=== PATIENT | female | born 1960 | race Caucasian/White ===

== ENCOUNTER → 2016-02-24 | Outpatient (CLI) | payer OTHER ==
[2016-02-24 16:52] LABS: MEAN CORPUSCULAR HEMOGLOBIN 32.5 pg (27.0-33.0); MEAN CORPUSCULAR VOLUME 95.6 fl (80.0-96.0); RED CELL DISTRIBUTION WIDTH 11.9 % (11.5-14.5); WHITE BLOOD COUNT 9.6 K/mm3 (4.0-10.0)
[2016-02-24 17:08] LABS: ALBUMIN 3.8 GM/DL (3.2-5.2); ALBUMIN/GLOBULIN RATIO 1.31 (1.00-1.93); ALKALINE PHOSPHATASE 92 U/L (45-117); ALT/SGPT 45 U/L (12-78); ANION GAP 9 MEQ/L (8-16); AST/SGOT 22 U/L (15-37); BILIRUBIN,TOTAL 0.2 MG/DL (0.2-1.0); BLOOD UREA NITROGEN 25 MG/DL (7-18); CALCIUM LEVEL 8.8 MG/DL (8.5-10.1); CARBON DIOXIDE LEVEL 26 MEQ/L (21-32); CHLORIDE LEVEL 108 MEQ/L (98-107); CREATININE FOR GFR 0.87 MG/DL (0.55-1.02); FERRITIN 284 NG/ML (8-252); GLOMERULAR FILTRATION RATE > 60.0 (>51); GLUCOSE, FASTING 131 MG/DL (70-105); PERCENT SATURATION 21.4 % (13.2-37.4); POTASSIUM SERUM 4.1 MEQ/L (3.5-5.1); SODIUM LEVEL 143 MEQ/L (136-145); TOTAL IRON BINDING CAPACITY 359 UG/DL (250-450); TOTAL PROTEIN 6.7 GM/DL (6.4-8.2)
== END ==
LOC: M LAB 15:14
PROVIDERS: ATTEND Nurse Practitioner Family
DX: Z98.84 Bariatric surgery status (principal)

== ENCOUNTER → 2016-08-18 | Outpatient (REF) | payer OTHER ==
[2016-08-18 14:32] LABS: ANION GAP 7 MEQ/L (8-16); BLOOD UREA NITROGEN 17 MG/DL (7-18); CALCIUM LEVEL 9.5 MG/DL (8.5-10.1); CARBON DIOXIDE LEVEL 29 MEQ/L (21-32); CHLORIDE LEVEL 104 MEQ/L (98-107); CHOLESTEROL LEVEL 197 MG/DL (<200); CREATININE FOR GFR 0.74 MG/DL (0.55-1.02); GLOMERULAR FILTRATION RATE > 60.0 (>51); GLUCOSE, FASTING 82 MG/DL (70-105); POTASSIUM SERUM 4.1 MEQ/L (3.5-5.1); SODIUM LEVEL 140 MEQ/L (136-145); TRIGLYCERIDES LEVEL 129 MG/DL (<150)
== END ==
LOC: M LAB REF 12:52
PROVIDERS: ATTEND Nurse Practitioner Family
DX: Z13.220 Encounter for screening for lipoid disorders (principal)

== ENCOUNTER → 2016-09-21 | Outpatient (REF) | payer OTHER, MEDICAID ==
[2016-09-21 14:10] LABS: MEAN CORPUSCULAR HEMOGLOBIN 31.6 pg (27.0-33.0); MEAN CORPUSCULAR HGB CONC 33.1 g/dl (32.0-36.5); MEAN CORPUSCULAR VOLUME 95.5 fl (80.0-96.0); RED CELL DISTRIBUTION WIDTH 12.9 % (11.5-14.5); WHITE BLOOD COUNT 5.5 K/mm3 (4.0-10.0)
== END ==
LOC: M LAB REF 13:22
PROVIDERS: ATTEND Nurse Practitioner Family
DX: D64.9 Anemia, unspecified (principal)

== ENCOUNTER → 2016-12-02 | Outpatient (REF) | payer OTHER, MEDICAID ==
[2016-12-02 14:15] LABS: ALBUMIN 3.9 GM/DL (3.2-5.2); ALBUMIN/GLOBULIN RATIO 1.22 (1.00-1.93); ALKALINE PHOSPHATASE 89 U/L (45-117); ALT/SGPT 44 U/L (12-78); ANION GAP 8 MEQ/L (8-16); AST/SGOT 28 U/L (15-37); BASO % 0.7 % (0.0-1.0); BILIRUBIN,TOTAL 0.4 MG/DL (0.2-1.0); BLOOD UREA NITROGEN 18 MG/DL (7-18); CALCIUM LEVEL 9.2 MG/DL (8.5-10.1); CARBON DIOXIDE LEVEL 28 MEQ/L (21-32); CHLORIDE LEVEL 103 MEQ/L (98-107); CREATININE FOR GFR 0.73 MG/DL (0.55-1.02); EOS # 0.1 10^3/uL (0.0-0.50); EOS % 1.8 % (0.0-3.0); GLOMERULAR FILTRATION RATE > 60.0 (>51); GLUCOSE, FASTING 98 MG/DL (70-105); LYMPH # 1.6 10^3/uL (1.5-4.5); LYMPH % 29.3 % (24.0-44.0); MEAN CORPUSCULAR HEMOGLOBIN 30.3 pg (27.0-33.0); MEAN CORPUSCULAR HGB CONC 33.6 g/dl (32.0-36.5); MEAN CORPUSCULAR VOLUME 90.3 fl (80.0-96.0); MONO # 0.5 10^3/uL (0.0-0.8); MONO % 9.1 % (0.0-5.0); NEUTROPHILS # 3.3 10^3/uL (1.8-7.7); NEUTROPHILS % 59.1 % (36.0-66.0); PLATELET COUNT, AUTOMATED 216 10^3/uL (150-450); POTASSIUM SERUM 3.9 MEQ/L (3.5-5.1); RED CELL DISTRIBUTION WIDTH 12.5 % (11.5-14.5); SODIUM LEVEL 139 MEQ/L (136-145); TOTAL PROTEIN 7.1 GM/DL (6.4-8.2); WHITE BLOOD COUNT 5.5 10^3/uL (4.0-10.0)
[2016-12-02 14:40] LABS: FOLATE > 24.0 NG/ML; VITAMIN B12 LEVEL 620 PG/ML
== END ==
LOC: M LAB REF 12:52
PROVIDERS: ATTEND Nurse Practitioner Adult Health
DX: D64.9 Anemia, unspecified (principal); E11.9 Type 2 diabetes mellitus without complications

== ENCOUNTER → 2017-03-27 | Outpatient (REF) | payer OTHER ==
[2017-03-27 22:21] LABS: APPEARANCE, URINE HAZY (CLEAR); BACTERIA, URINE AUTO 3+ (NEGATIVE); BILIRUBIN, URINE AUTO NEGATIVE (NEGATIVE); BLOOD, URINE BLOOD 1+ (NEGATIVE); COLOR, URINE STRAW (YELLOW); GLUCOSE, URINE (UA) AUTO NEGATIVE (NEGATIVE); KETONE, URINE AUTO NEGATIVE (NEGATIVE); LEUKOCYTE ESTERASE, URINE AUTO 1+ (NEGATIVE); MUCUS, URINE SMALL (NEGATIVE); NITRITE, URINE AUTO POSITIVE (NEGATIVE); PROTEIN, URINE AUTO NEGATIVE (NEGATIVE); RBC, URINE AUTO 5 /HPF (0-3); SPECIFIC GRAVITY URINE AUTO 1.006 (1.002-1.035); SQUAMOUS EPITHELIAL CELL UR AU 0 /HPF (0-6); UROBILINOGEN, URINE AUTO 0.2 mg/dL (0.0-2.0); WBC, URINE AUTO 20 /HPF (0-3)
== END ==
LOC: M LAB REF 09:38
DX: N39.0 Urinary tract infection, site not specified (principal)

== ENCOUNTER → 2017-05-27 | Outpatient (REF) | payer OTHER, MEDICAID ==
[2017-05-27 18:14] LABS: BASO % 0.4 % (0.0-1.0); EOS # 0.1 10^3/uL (0.0-0.50); EOS % 2.9 % (0.0-3.0); HEMATOCRIT 42.6 % (36.0-47.0); HEMOGLOBIN 13.9 g/dl (12.0-15.5); IMMATURE GRANULOCYTE % 0.2 % (0-3.0); LYMPH # 1.3 10^3/uL (1.5-4.5); LYMPH % 26.6 % (24.0-44.0); MEAN CORPUSCULAR HGB CONC 32.6 g/dl (32.0-36.5); MONO # 0.5 10^3/uL (0.0-0.8); MONO % 9.2 % (0.0-5.0); NEUTROPHILS % 60.7 % (36.0-66.0); PLATELET COUNT, AUTOMATED 197 10^3/uL (150-450); RED BLOOD COUNT 4.63 10^6/uL (4.00-5.40); RED CELL DISTRIBUTION WIDTH 12.7 % (11.5-14.5); WHITE BLOOD COUNT 4.9 10^3/uL (4.0-10.0)
[2017-05-27 18:26] LABS: ALBUMIN 3.8 GM/DL (3.2-5.2); ALBUMIN/GLOBULIN RATIO 1.23 (1.00-1.93); ALKALINE PHOSPHATASE 94 U/L (45-117); ALT/SGPT 44 U/L (12-78); ANION GAP 7 MEQ/L (8-16); AST/SGOT 22 U/L (7-37); BILIRUBIN,TOTAL 0.3 MG/DL (0.2-1.0); BLOOD UREA NITROGEN 21 MG/DL (7-18); CALCIUM LEVEL 8.9 MG/DL (8.5-10.1); CARBON DIOXIDE LEVEL 27 MEQ/L (21-32); CHLORIDE LEVEL 108 MEQ/L (98-107); CREATININE FOR GFR 0.75 MG/DL (0.55-1.30); GLOMERULAR FILTRATION RATE > 60.0 (>51); GLUCOSE, FASTING 103 MG/DL (70-100); POTASSIUM SERUM 4.1 MEQ/L (3.5-5.1); SODIUM LEVEL 142 MEQ/L (136-145); TOTAL PROTEIN 6.9 GM/DL (6.4-8.2)
[2017-05-27 18:47] LABS: ESTIMATED AVERAGE GLUCOSE 123 MG/DL (60-110); HEMOGLOBIN A1c 5.9 %
== END ==
LOC: M LAB REF 17:47
DX: E11.9 Type 2 diabetes mellitus without complications (principal)
CPT/HCPCS: 80053

== ENCOUNTER 2017-06-08 15:44 | Emergency (ER) | payer OTHER, MEDICAID ==
[2017-06-08 19:33] LABS: HEMATOCRIT 43.3 % (36.0-47.0); HEMOGLOBIN 14.4 g/dl (12.0-15.5); MEAN CORPUSCULAR HEMOGLOBIN 30.4 pg (27.0-33.0); MEAN CORPUSCULAR HGB CONC 33.3 g/dl (32.0-36.5); MEAN CORPUSCULAR VOLUME 91.5 fl (80.0-96.0); PLATELET COUNT, AUTOMATED 190 10^3/uL (150-450); RED BLOOD COUNT 4.73 10^6/uL (4.00-5.40); RED CELL DISTRIBUTION WIDTH 12.2 % (11.5-14.5); WHITE BLOOD COUNT 6.7 10^3/uL (4.0-10.0)
[2017-06-08 19:52] LABS: ANION GAP 3 MEQ/L (8-16); BLOOD UREA NITROGEN 18 MG/DL (7-18); CALCIUM LEVEL 8.9 MG/DL (8.5-10.1); CARBON DIOXIDE LEVEL 30 MEQ/L (21-32); CHLORIDE LEVEL 108 MEQ/L (98-107); CREATININE FOR GFR 0.66 MG/DL (0.55-1.30); GLOMERULAR FILTRATION RATE > 60.0 (>51); GLUCOSE, FASTING 94 MG/DL (70-100); MAGNESIUM LEVEL 2.2 MG/DL (1.8-2.4); POTASSIUM SERUM 3.9 MEQ/L (3.5-5.1); SODIUM LEVEL 141 MEQ/L (136-145)
[2017-06-08 20:37] LABS: ALBUMIN 4.1 GM/DL (3.2-5.2); ALBUMIN/GLOBULIN RATIO 1.28 (1.00-1.93); ALKALINE PHOSPHATASE 90 U/L (45-117); ALT/SGPT 43 U/L (12-78); AST/SGOT 28 U/L (7-37); BILIRUBIN,DIRECT < 0.1 MG/DL (0.0-0.2); BILIRUBIN,TOTAL 0.2 MG/DL (0.2-1.0); TOTAL PROTEIN 7.3 GM/DL (6.4-8.2)
== END 2017-06-08 21:07 | disposition home or self-care (01) ==
LOC: M ED 15:44
DX: R22.41 Localized swelling, mass and lump, right lower limb (principal); J44.9 Chronic obstructive pulmonary disease, unspecified; Z98.0 Intestinal bypass and anastomosis status; Z98.890 Other specified postprocedural states; Z88.1 Allergy status to other antibiotic agents; Z88.8 Allergy status to other drugs, medicaments and biological substances
CPT/HCPCS: 93971

== ENCOUNTER → 2018-02-16 | Outpatient (CLI) | payer OTHER ==
[~2018-02-16] MED LIST: FERR325T3 PO; KETO10TAB PO; LASI40TA9 PO; MULT1CHW39 PO; PRED20TA PO; PROAAER10 INH; ROBA750T4 PO; VITA100067 PO
--- NOTE | 2018-02-17 04:51 | REP ---
Clinical: Abnormal gallbladder . Comparison: 02/19/2010 Technique: Duong scale ultrasound using curved array transducer. Findings: The liver and pancreas are normal in contour, size, and echogenicity without focal hepatic or pancreatic lesions identified. The gallbladder is normal without gallstones, wall thickening or pericholecystic fluid. The previously identified gallbladder polyp is not visualized on current examination. No biliary ductal dilatation is appreciated, and the common bile duct measures 4.7 mm diameter. The right kidney is normal in reniform shape without hydronephrosis and measures 10.7 x 4.8 x 4.0 cm. No ascites. Visualized portions of the abdominal aorta normal. Impression: Normal right upper quadrant and gallbladder abdominal ultrasound. Electronically Signed by Asad Miguel MD 02/17/2018 04:43 A
== END ==
LOC: M RAD 07:41
PROVIDERS: ATTEND Nurse Practitioner Adult Health
DX: K82.8 Other specified diseases of gallbladder (principal)

== ENCOUNTER 2018-05-26 14:38 | Emergency (ER) | payer OTHER ==
[~2018-05-26] VITALS: Ht 152.4 cm; Wt 90.9 kg
[~2018-05-26 14:38] MED LIST changes: -MULT1CHW39 PO; +MULT200T7 PO
[2018-05-26] MEDS ORDERED: FOLI400T (14:50)
[2018-05-26] MEDS ORDERED: EMLA CREAM 5GM (LIDOCAINE/PRILOCAINE) TOP ONE (15:00)
[2018-05-26] MEDS ORDERED: MORPHINE 4 MG/ML 1ML VIAL/SYRINGE (J2270) IV ONE (15:00)
[2018-05-26] MEDS ORDERED: NS 1,000 ML IV SCH (15:00)
[2018-05-26] MEDS ORDERED: ONDANSETRON 4MG/2ML VIAL (J2405) IV ONE (15:00)
[2018-05-26 15:40] LABS: BASO % 0.5 % (0.0-1.0); EOS # 0.1 10^3/uL (0.0-0.50); EOS % 1.8 % (0.0-3.0); HEMATOCRIT 41.9 % (36.0-47.0); HEMOGLOBIN 14.1 g/dl (12.0-15.5); LYMPH # 1.5 10^3/uL (1.5-4.5); LYMPH % 25.8 % (24.0-44.0); MEAN CORPUSCULAR HGB CONC 33.7 g/dl (32.0-36.5); MEAN CORPUSCULAR VOLUME 92.1 fl (80.0-96.0); MONO # 0.5 10^3/uL (0.0-0.8); MONO % 8.7 % (0.0-5.0); NEUTROPHILS # 3.8 10^3/uL (1.8-7.7); PLATELET COUNT, AUTOMATED 195 10^3/uL (150-450); RED BLOOD COUNT 4.55 10^6/uL (4.00-5.40)
[2018-05-26 16:06] LABS: ALBUMIN 3.9 GM/DL (3.2-5.2); ALT/SGPT 43 U/L (12-78); BILIRUBIN,DIRECT < 0.1 MG/DL (0.0-0.2); BILIRUBIN,TOTAL 0.3 MG/DL (0.2-1.0); BLOOD UREA NITROGEN 18 MG/DL (7-18); CALCIUM LEVEL 8.7 MG/DL (8.5-10.1); CARBON DIOXIDE LEVEL 28 MEQ/L (21-32); CHLORIDE LEVEL 109 MEQ/L (98-107); CREATININE FOR GFR 0.73 MG/DL (0.55-1.30); GLOMERULAR FILTRATION RATE > 60.0 (>51); GLUCOSE, FASTING 104 MG/DL (70-100); LIPASE 177 U/L (73-393); POTASSIUM SERUM 3.6 MEQ/L (3.5-5.1); SODIUM LEVEL 143 MEQ/L (136-145); TOTAL PROTEIN 6.5 GM/DL (6.4-8.2)
--- NOTE | 2018-05-26 16:51 | REP ---
Right upper quadrant sonography: History: Right upper quadrant pain. Rule out cholecystitis. Comparison study: Comparison study is from February 16, 2018. Findings: Scanning through the right upper quadrant of the abdomen demonstrates a normal sized, thin-walled gallbladder without evidence of stone or polyp. Common bile duct is normal measuring 0.3 cm in greatest diameter. No focal liver lesion is seen. Liver size is normal. No pancreatic abnormality is observed. No right renal abnormality is seen. There is no evidence of ascites. The right kidney measures 10.0 x 4.9 x 4.5 cm. Impression: Negative right upper quadrant sonography. Electronically Signed by Florentin Felix MD 05/26/2018 04:42 P
[2018-05-26] MEDS: GASTROGRAFIN SOLUTION 30ML PO SCH ×2 (18:13→18:22)
[2018-05-26] MEDS ORDERED: ISOVUE-370 76% 100ML VIAL (Q9967) As Ordered ONE (18:37)
--- NOTE | 2018-05-26 19:34 | REP ---
CT abdomen and pelvis with IV and oral contrast: History: Right upper quadrant pain. CT contrast dose: 100 ml of intravenous Isovue 370. CT findings: Bilateral breast augmentation implants are seen at the top of the imaging field of view. Preliminary digital order takers supervisor view of the abdomen show air and stool in nondistended colon loops. The lung bases are clear on axial CT images. The patient is status post gastric bypass procedure and there is evidence of a hiatal hernia. The liver and the spleen are normal in size and homogeneous in texture. The gallbladder and the pancreas are unremarkable. No adrenal lesion is seen. The kidneys enhance symmetrically and are morphologically intact. Small and large intestinal bowel loops are normal in the abdomen and pelvis. The appendix is surgically absent. The uterus is surgically absent. Urinary bladder is unremarkable. No pelvic mass or adenopathy is seen. There is a small periumbilical ventral hernia transmitting a small quantity of abdominal fat. Impression: No acute intra-abdominal abnormality. Small periumbilical ventral hernia transmitting fat. Hiatal hernia. Status post gastric bypass, appendectomy, and hysterectomy. Electronically Signed by Florentin Felix MD 05/26/2018 07:39 P
[2018-05-26] MEDS ORDERED: ZOFR4TAB16 PO (19:49)
[2018-05-26 20:05] VITALS: BP 156/71
== END 2018-05-26 20:20 | disposition home or self-care (01) ==
LOC: M ED 14:38
DX: R10.9 Unspecified abdominal pain (principal); R11.2 Nausea with vomiting, unspecified; K43.9 Ventral hernia without obstruction or gangrene; E11.9 Type 2 diabetes mellitus without complications; J44.9 Chronic obstructive pulmonary disease, unspecified; M51.9 Unspecified thoracic, thoracolumbar and lumbosacral intervertebral disc disorder; Z79.899 Other long term (current) drug therapy; Z88.8 Allergy status to other drugs, medicaments and biological substances
CPT/HCPCS: 74177; 76705; 80048; 80076; 83690; 85025; 93041; 96374; 96375; 99285; J2270; J2405; Q9963; Q9967

== ENCOUNTER 2018-06-09 16:04 | Emergency (ER) | payer OTHER ==
[~2018-06-09] VITALS: Ht 152.4 cm; Wt 81.8 kg
[~2018-06-09 16:04] MED LIST changes: +FOLI400T; +ZOFR4TAB16 PO
[2018-06-09] MEDS ORDERED: SUCRALFATE SUSP 1GM/10ML UD PO ONE (16:45)
[2018-06-09] MEDS ORDERED: GI COCKTAIL 50ML BTL(HYOSCYAMINE/MAALOX/LIDOCAINE VISCOUS)(1:3:1) PO ONE (16:45)
[2018-06-09] MEDS ORDERED: NS 500 ML IV ONE (16:45)
[2018-06-09] MEDS ORDERED: PANTOPRAZOLE 40MG INJ (PROTONIX) (C9113) IV ONE (16:45)
[2018-06-09] MEDS ORDERED: METOCLOPRAMIDE INJ 10MG/2ML VIAL (J2765) IV ONE (16:45)
[2018-06-09] MEDS ORDERED: EMLA CREAM 5GM (LIDOCAINE/PRILOCAINE) TOP ONE (17:00)
[2018-06-09 18:40] LABS: BASO % 0.3 % (0.0-1.0); EOS # 0.2 10^3/uL (0.0-0.50); EOS % 1.4 % (0.0-3.0); HEMATOCRIT 45.9 % (36.0-47.0); HEMOGLOBIN 15.5 g/dl (12.0-15.5); LYMPH % 17.2 % (24.0-44.0); MEAN CORPUSCULAR HEMOGLOBIN 31.3 pg (27.0-33.0); MEAN CORPUSCULAR HGB CONC 33.8 g/dl (32.0-36.5); MEAN CORPUSCULAR VOLUME 92.5 fl (80.0-96.0); MONO # 0.8 10^3/uL (0.0-0.8); MONO % 6.9 % (0.0-5.0); NEUTROPHILS # 8.7 10^3/uL (1.8-7.7); NEUTROPHILS % 73.7 % (36.0-66.0); PLATELET COUNT, AUTOMATED 196 10^3/uL (150-450); RED BLOOD COUNT 4.96 10^6/uL (4.00-5.40); WHITE BLOOD COUNT 11.8 10^3/uL (4.0-10.0)
--- NOTE | 2018-06-09 18:51 | REPVR ---
EXAM: US Abdomen Limited, Right Upper Quadrant EXAM DATE/TIME: 06/09/2018 6:06 PM CLINICAL HISTORY: 57 years old, female; Abdominal pain; Acute; Additional info: Gb pain eval TECHNIQUE: Imaging protocol: Real-time ultrasound of the abdomen with image documentation. Examination was focused on the right upper quadrant. COMPARISON: GALLBLADDER US 05/26/2018 3:53 PM FINDINGS: Liver: Echogenic, consistent with fatty infiltration. Gallbladder: Mildly distended. No gallstones. No gallbladder wall thickening or pericholecystic fluid. Positive sonographic Sevilla's sign, as per the disability case manager. This is a nonspecific finding. Common bile duct: No stones. No ductal dilatation. Pancreas: Unremarkable as visualized. Right kidney: No mass. No definite stones. No hydronephrosis. IMPRESSION: No acute sonographic findings. Electronically signed by: Niko Allen On 06/09/2018 18:51:01 PM
[2018-06-09 19:09] LABS: ALBUMIN 4.1 GM/DL (3.2-5.2); ALT/SGPT 41 U/L (12-78); BILIRUBIN,DIRECT < 0.1 MG/DL (0.0-0.2); BILIRUBIN,TOTAL 0.4 MG/DL (0.2-1.0); BLOOD UREA NITROGEN 16 MG/DL (7-18); CALCIUM LEVEL 8.8 MG/DL (8.5-10.1); CARBON DIOXIDE LEVEL 30 MEQ/L (21-32); CHLORIDE LEVEL 105 MEQ/L (98-107); CREATININE FOR GFR 0.77 MG/DL (0.55-1.30); GLOMERULAR FILTRATION RATE > 60.0 (>51); GLUCOSE, FASTING 85 MG/DL (70-100); LIPASE 275 U/L (73-393); POTASSIUM SERUM 4.1 MEQ/L (3.5-5.1); SODIUM LEVEL 140 MEQ/L (136-145); TOTAL PROTEIN 7.4 GM/DL (6.4-8.2)
[2018-06-09 19:19] VITALS: BP 144/89
[2018-06-09] MEDS ORDERED: PROT1TAB2 PO (19:33)
[2018-06-09] MEDS ORDERED: CARA1TAB6 PO (19:33)
== END 2018-06-09 19:49 | disposition home or self-care (01) ==
LOC: M ED 16:04 → EDBD 16:04 → M ED 19:49
DX: K29.70 Gastritis, unspecified, without bleeding (principal); J45.909 Unspecified asthma, uncomplicated; D50.9 Iron deficiency anemia, unspecified; K44.9 Diaphragmatic hernia without obstruction or gangrene; Z98.84 Bariatric surgery status; Z79.899 Other long term (current) drug therapy; Z88.8 Allergy status to other drugs, medicaments and biological substances
CPT/HCPCS: 76705; 80048; 80076; 83690; 85025; 96361; 96374; 96375; 99284; C9113; J2765

== ENCOUNTER → 2018-06-17 | Outpatient (REF) | payer OTHER ==
[~2018-06-17] MED LIST changes: +CARA1TAB6 PO; +PROT1TAB2 PO
[2018-06-17 18:20] LABS: IRON (FE) 112 UG/DL (50-170)
[2018-06-17 18:30] LABS: TOTAL 25(OH) VITAMIN D 30.4 NG/ML (30.0-100.0)
[2018-06-17 18:31] LABS: FOLATE > 24.0 NG/ML; VITAMIN B12 LEVEL 452 PG/ML
[2018-06-17 19:08] LABS: HEMOGLOBIN A1c 5.8 %
== END ==
LOC: M LAB REF 16:39
PROVIDERS: ATTEND Nurse Practitioner Adult Health
DX: Z98.84 Bariatric surgery status (principal); E11.9 Type 2 diabetes mellitus without complications

== ENCOUNTER → 2018-07-01 | Outpatient (CLI) | payer OTHER ==
[~2018-07-01] MED LIST changes: +D 1010004 PO; +D31000CA4 PO; +GARC500T PO; +RA B1TAB2 PO
--- NOTE | 2018-07-01 10:30 | REP ---
UNILATERAL MAMMOGRAM RIGHT BREAST WITH 3D TOMOSYNTHESIS: Unilateral mammogram right breast performed with 3D tomosynthesis. Patient has had a prior left mastectomy for breast cancer. Right breast implant is grossly intact. Mild scattered fibroglandular tissue is seen in the right breast. No mass is seen. However there appear to be new tiny calcifications clustered in the medial aspect of the right breast. Recommend magnification views to further evaluate. IMPRESSION: ACR 0 incomplete. Tiny microcalcifications in the medial right breast. Recommend magnification views to further evaluate. Electronically Signed by Lance Duong MD 07/05/2018 09:56 A
== END ==
LOC: M RAD 08:59
PROVIDERS: ATTEND Internal Medicine Hematology & Oncology
DX: Z12.31 Encounter for screening mammogram for malignant neoplasm of breast (principal); Z98.82 Breast implant status; Z90.12 Acquired absence of left breast and nipple; R92.2 Inconclusive mammogram; Z85.3 Personal history of malignant neoplasm of breast

== ENCOUNTER → 2018-07-11 | Outpatient (CLI) | payer OTHER ==
--- NOTE | 2018-07-11 13:19 | REP ---
DIAGNOSTIC MAMMOGRAM RIGHT BREAST: Spot magnification views of the right breast are performed and correlated with the recent mammogram of 07/01/2018. Patient has a history of left breast cancer and mastectomy. There is a family history of breast cancer in mother at age 60 and breast cancer in maternal aunt at age 42 and in paternal aunt at age 60. Today's magnification views confirm the presence of clustered tiny microcalcifications in the inner right breast. These are not seen on prior studies. IMPRESSION: BIRADS 4: BI-RADS/ACR category 4 mammogram. Suspicious Abnormality - biopsy should be considered. Clustered tiny microcalcifications in the medial right breast. Recommend stereotactic biopsy. The patient letter being requested is M4. Electronically Signed by Lance Duong MD 07/12/2018 11:57 A
== END ==
LOC: M RAD 12:16
PROVIDERS: ATTEND Internal Medicine Hematology & Oncology
DX: R92.0 Mammographic microcalcification found on diagnostic imaging of breast (principal); Z85.3 Personal history of malignant neoplasm of breast; Z90.12 Acquired absence of left breast and nipple; Z80.3 Family history of malignant neoplasm of breast

== ENCOUNTER → 2018-07-21 | Outpatient (CLI) | payer OTHER ==
--- NOTE | 2018-07-21 11:18 | REP ---
Hepatobiliary scan and gallbladder ejection fraction: History: Right upper quadrant pain Technique: 6.2 mCi of technetium-99m mebrofenin was injected and sequential anterior images are acquired. 65 minutes after the mebrofenin injection, the patient consumed 8 ounces Ensure and an additional 60 minutes of imaging was acquired. Regions of interest are plotted around the gallbladder. Findings: The initial hepatocellular parenchymal uptake phase is normal and homogeneous. Intra- and extra-hepatic bile ducts are labeled by the five -minute image. The gallbladder is first labeled on the five -minute image. There is normal washout from the liver parenchyma into the gallbladder and small intestine on subsequent images. The gallbladder ejection fraction is 63 %. Values greater than 35 % are considered normal with this technique. Impression: Normal hepatobiliary scan and normal gallbladder ejection fraction. Electronically Signed by Florentin Felix MD 07/21/2018 11:09 A
== END ==
LOC: M RAD 07:44
PROVIDERS: ATTEND Surgery
DX: R10.11 Right upper quadrant pain (principal)
CPT/HCPCS: 78227; A9537; J2805

== ENCOUNTER → 2018-07-29 | Outpatient (CLI) | payer OTHER ==
[~2018-07-29] MED LIST changes: +LIDOCAINE 1% MDV 20ML VIAL As Ordered ONE
== END ==
LOC: M RADPRO 10:56
PROVIDERS: ATTEND Internal Medicine Hematology & Oncology
DX: R92.0 Mammographic microcalcification found on diagnostic imaging of breast (principal); Z53.8 Procedure and treatment not carried out for other reasons

== ENCOUNTER 2019-01-15 12:08 | Inpatient (IN) | payer OTHER ==
[~2019-01-15] VITALS: Ht 152.4 cm; Wt 85.0 kg
[~2019-01-15 12:08] MED LIST changes: -LIDOCAINE 1% MDV 20ML VIAL As Ordered ONE
[2019-01-15] MEDS ORDERED: ALBU83IN NEB (12:46)
--- NOTE | 2019-01-15 13:29 | REP ---
CHEST PA AND LATERAL: 01/15/2019. COMPARISON: 08/28/2014. CLINICAL HISTORY: Cough, chest heaviness. FINDINGS: The lung deleon well inflated. There is no definite effusion, infiltrate, atelectasis, or mass. Heart size upper limits of normal without specific chamber enlargement. There is some pulmonary venous hypertension without pulmonary edema. There are axillary surgical clips from lymph node dissection on the left. Airway is intact. Bony thorax shows no focal lesion. IMPRESSION: 1. Some borderline heart size with pulmonary venous hypertension. No pulmonary edema, pleural effusion, or definite infiltrate. 2. Axillary surgical clips on the left from presumed lymph node dissection. Electronically Signed by Juwan Rogel MD 01/15/2019 05:14 P
[2019-01-15] MEDS ORDERED: IPRATROPIUM 0.5MG/ALBUTEROL 2.5MG INH SOL UD 3ML (DUONEB)(J7620) NEB ONE (14:15)
[2019-01-15] MEDS ORDERED: NS 1,000 ML IV ONE (14:15)
[2019-01-15 14:46] LABS: BASO % 0.8 % (0.0-1.0); EOS # 0.2 10^3/uL (0.0-0.5); EOS % 3.8 % (0.0-3.0); HEMATOCRIT 42.6 % (36.0-47.0); LYMPH # 1.3 10^3/uL (1.5-5.0); LYMPH % 25.9 % (24.0-44.0); MEAN CORPUSCULAR HEMOGLOBIN 30.9 pg (27.0-33.0); MEAN CORPUSCULAR HGB CONC 32.9 g/dl (32.0-36.5); MONO # 0.4 10^3/uL (0.0-0.8); MONO % 8.7 % (0.0-5.0); NEUTROPHILS % 60.6 % (36.0-66.0); PLATELET COUNT, AUTOMATED 159 10^3/uL (150-450); RED BLOOD COUNT 4.53 10^6/uL (4.00-5.40)
[2019-01-15] MEDS ORDERED: hydrALAZINE INJ 20 MG/ML VIAL IV STA ×2 (15:02→16:48)
[2019-01-15 15:09] LABS: ALBUMIN 3.6 GM/DL (3.2-5.2); ALT/SGPT 40 U/L (12-78); BILIRUBIN,TOTAL 0.3 MG/DL (0.2-1.0); BLOOD UREA NITROGEN 16 MG/DL (7-18); CALCIUM LEVEL 8.3 MG/DL (8.5-10.1); CARBON DIOXIDE LEVEL 28 MEQ/L (21-32); CHLORIDE LEVEL 110 MEQ/L (98-107); CK-MB VALUE MASS 1.4 NG/ML (<3.6); CPK CREATINE PHOSPHOKINASE 116 U/L (26-192); CREATININE FOR GFR 0.76 MG/DL (0.55-1.30); GLOMERULAR FILTRATION RATE > 60.0 (>51); GLUCOSE, FASTING 90 MG/DL (70-100); MB/CK RELATIVE INDEX 1.21 (< OR =4); NT-PRO BNP 269 PG/ML (<125); POTASSIUM SERUM 3.9 MEQ/L (3.5-5.1); SODIUM LEVEL 143 MEQ/L (136-145); TOTAL PROTEIN 6.3 GM/DL (6.4-8.2); TROPONIN I < 0.02 NG/ML (< 0.10)
[2019-01-15] MEDS ORDERED: ISOVUE-370 76% 100ML VIAL (Q9967) As Ordered ONE (15:20)
--- NOTE | 2019-01-15 15:48 | ECGEPIP ---
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
--- NOTE | 2019-01-15 16:36 | REP ---
LEFT LOWER EXTREMITY DOPPLER VENOUS ULTRASOUND: 11/15/2018. Clinical history: Left lower extremity swelling. Evaluate for DVT. Comparison: None. Technique: The deep venous system of the left lower extremity is evaluated with doe scale imaging, compression ultrasound, color imaging and duplex Doppler interrogation. Examination from the groin through the popliteal fossa into the proximal calf. Findings: There is full compressibility from the common femoral vein in the inguinal region through the popliteal vein. Color imaging confirms patency throughout the course of the deep venous system. There is respiratory variation and augmented flow at all levels. Incidental note of a 4 x 2.7 x 1.7 cm popliteal fossa cyst. Impression: 1. No Doppler venous ultrasound evidence of DVT in the left lower extremity. 2. There is a 4 x 2.7 cm popliteal fossa cyst on that left side. Electronically Signed by Juwan Rogel MD 01/15/2019 04:28 P
[2019-01-15] MEDS ORDERED: FOLI1TAB11 PO (17:31)
[2019-01-15] MEDS ORDERED: PANT40TA3 PO (17:31)
[2019-01-15] MEDS ORDERED: ALBUTEROL SULFATE 2.5 MG/0.5 ML INH NEB SOLN NEB PRN (18:00)
[2019-01-15] MEDS ORDERED: ACETAMINOPHEN TAB 650MG DOSE (2X325MG) PO PRN ×2 (18:00→23:45)
[2019-01-15] MEDS ORDERED: MOM 30ML SUSPENSION UDC PO PRN (18:00)
[2019-01-15] MEDS ORDERED: amLODIPine 10 MG TAB PO ONE (19:00)
[2019-01-15 20:05] VITALS: BP 160/78
[2019-01-15] MEDS: DOCUSATE SODIUM 100 MG CAP PO SCH (20:25)
[2019-01-15 22:30] VITALS: BP 150/70
[2019-01-15] MEDS: hydrALAZINE INJ 20 MG/ML VIAL IV SCH (22:41)
--- NOTE | 2019-01-15 23:49 | HPEPDOC ---
General Date of Admission Jan 15, 2019 at 18:00 Date of Service: Jan 15, 2019 Chief Complaint The patient is a 58-year-old female admitted with a reason for visit of Hypertensive Urgency, Uri. 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 and breast reconstruction with implant in 2003, revision of reconstruction in 2005, 2008, 2010, 2011, 2012 due to asymetry form weight shifts, H/o Morbid obesity s/p gastric bypass surgery in 2008 , right breast reduction surgery foll owed by right mastectomy for some calcifications suspicious for malignancy which came out to be fat necrosis and fibrous tissues, s/p right breast reconstruction with implant, Obesity , diabetes with neuropathy and retinopathy, Chronic asthma, hypertension, hyperlipidemia, h/o chronic low back pain, incarcerated abdominal incisional hernia repair, appendectomy, cholecystectomy, lumpetomy of right breast in 1997 who has not needed any diabetic medications or antihypertensive medications since her bypass surgery with loss of about 120 lbs presented to the ED today for 4 days history of headache, dizziness, sinus fullness, nasal congestion, post nasal drip and sore throat. She also started having some difficulty in her breathing feeling a little chest tightness and cough since yesterday. Her nebulizer machine has been broken . She was using her albuterol inhaler but did not give her complete relief. She felt her asthma was acting up due to the cold she was having. So came to the ED for evaluation. In the ED she was found to have a URI due to human rhinovirus infection and mild asthma exacerbation. SHe had a nebulizer treatment with improvemnet of her respiratory symptoms. However her blood pressure was noted to be very high 210/98 for several hours. She received hydrazine IV in the ED with no control of her BP so was admitted for hypertensive urgency. Home Medications Scheduled Cholecalciferol (Vitamin D3) (Vitamin D3) 1,000 Unit Capsule, 1,000 UNIT PO DAILY, (Reported) Chrom Amor/Brindal Radford (Garcinia Cambogia Tablet) 1 Each Tablet, 1 TAB PO DAILY, (Reported) Ferrous Sulfate (Ferrous Sulfate) 325 Mg Tab, 325 MG PO DAILY, (Reported) Folic Acid (Folic Acid) 1 Mg Tablet, 1 MG PO DAILY, (Reported) Furosemide (Lasix) 40 Mg Tab, 40 MG PO DAILY, (Reported) Multivit-Minerals/Folic Acid (Adult Multivitamin Gummies) 1 Chw Chw, 1 CHW PO DAILY, (Reported) Pantoprazole Sodium (Pantoprazole Sodium) 40 Mg Tablet.dr, 40 MG PO DAILY, ( Reported) Vitamin B Complex (Vitamin B Complex) 1 Each Tablet, 1 TAB PO DAILY, (Reported) Scheduled PRN Albuterol Sulf (Albuterol Sulfate) 2.5 Mg/3 Ml Vial.neb, 2.5 MG NEB Q6H PRN for SOB/WHEEZING, (Reported) Albuterol Sulfate (Proair Hfa) 108 Mcg/Act Aer, 2 PUFF INH Q6H PRN for WHEEZING, (Reported) Allergies Coded Allergies: pregabalin (Verified Allergy, Severe, throat swelling, 05/26/18) Penicillins (Verified Allergy, Intermediate, rash, 06/29/18) gabapentin (Verified Allergy, Intermediate, hives, 05/26/18) metronidazole (Verified Allergy, Mild, rash, 05/26/18) quetiapine (Verified Adverse Reaction, Mild, lethargic, 05/26/18) Past Medical History Medical History Left breast lumpectomy in 1997, 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 and breast reconstruction with implant in 2003, revision of reconstruction in 2005, 2008, 2010, 2011, 2012 due to asymetry form weight shifts, H/o Morbid obesity s/p gastric bypass surgery in 2008 , right breast reduction surgery followed by right mastectomy for some calcifications suspicious for malignancy which came out to be fat necrosis and fibrous tissues, s/p right breast reconstruction with implant, Obesity , diabetes with neuropathy and retinopathy, Chronic asthma, hypertension, hyperlipidemia, h/o chronic low back pain, incarcerated abdominal incisional hernia repair Surgical History Bilateral mastectomies, breast reconstruction, breast implants, several revisions of breast reconstruction, gastric bypass, appendectomy, cholecystectomy, c sections, ANNALEE with BSO, hernia surgery, tightening of loose s kin on the abdomen, incarcerated incisional hernia repair Family History Mother had breast cancer in her 60s and underwent chemotherapy. She had a paternal aunt with breast cancer and a maternal aunt with breast cancer. She states both grandfathers had colon cancer as well as her father. Daughter with cervical cancer at age 21. Social History * Smoker: Denies Alcohol: rarely Drugs: denies A-FIB/CHADSVASC A-FIB History Current/History of A-Fib/PAF?: No Review of Systems Constitutional: Denies: Chills, Fever, Night Sweats Eyes: Denies: Pain, Vision change ENT: Reports: Head Aches, Sinus Congestion, Post Nasal Drip, Sore Throat Skin: Denies: Rash, Lesions, Breakdown Pulmonary: Reports: Dyspnea, Cough Cardiovascular: Reports: Lt Headedness; Denies: Chest Pain, Palpitations, Orthopnea, Paroxysmal Noc. Dyspnea Gastrointestinal: Denies: Nausea, Vomiting, Abdominal Pain, Diarrhea Genitourinary: Denies: Dysuria, Frequency, Incontinence, Retention Hematologic: Denies: Bruising, Bleeding Excessively Musculoskeletal: Denies: Neck Pain, Back Pain, Joint Pain, Muscle Pain, Spasms Neurological: Denies: Weakness, Numbness, Change in speech, Confusion Psych: Reports: Mood Normal; Denies: Depression, Memory Issues Physical Examination General Exam: Positive: Alert, Cooperative, No Acute Distress Eye Exam: Positive: PERRLA, Conjunctiva & lids normal, EOMI; Negative: Sclera icteric ENT Exam: Positive: Atraumatic, Mucous membr. moist/pink, Pharynx Normal Neck Exam: Positive: Supple; Negative: JVD, thyromegaly Chest Exam: Positive: Clear to auscultation, Normal air movement Heart Exam: Positive: Rate Normal, Regular Rhythm, Normal S1, Normal S2; Negative: Murmurs, Rubs Telemetry: Positive: No significant arrhythmia Abdomen Exam: Positive: Normal bowel sounds, Soft; Negative: Tenderness, Hepatospenomegaly Extremity Exam: Negative: Clubbing, Cyanosis, Edema Skin Exam: Positive: Nl turgor and temperature; Negative: Breakdown, Lesion Psych Exam: Positive: Mental status NL, Mood NL, Oriented x 3 Vital Signs Vital Signs Date Time Temp Pulse Resp B/P (MAP) Pulse Ox O2 Delivery O2 Flow Rate FiO2 01/15/19 22:41 150/70 01/15/19 20:05 97.8 95 16 97 Room Air Laboratory Data Labs 24H Laboratory Tests 2 01/15/19 14:28: Immature Granulocyte % (Auto) 0.2, Neutrophils (%) (Auto) 60.6, Lymphocytes (%) (Auto) 25.9, Monocytes (%) (Auto) 8.7H, Eosinophils (%) (Auto) 3.8H, Basophils (%) (Auto) 0.8, Neutrophils # (Auto) 3.0, Lymphocytes # (Auto) 1.3L, Monocytes # (Auto) 0.4, Eosinophils # (Auto) 0.2, Basophils # (Auto) 0.0, Nucleated Red Blood Cells % (auto) 0.0, Anion Gap 5L, Glomerular Filtration Rate > 60.0, Calcium Level 8.3L, Total Bilirubin 0.3, Aspartate Amino Transf (AST/SGOT) 24, Alanine Aminotransferase (ALT/SGPT) 40, Alkaline Phosphatase 83, Total Creatine Kinase 116, Creatine Kinase MB 1.4, Creatine Kinase MB Relative Index 1.21, Troponin I < 0.02, FF-Ipc-C-Type Natriuretic Peptide 269H, Total Protein 6.3L, Albumin 3.6, Albumin/Globulin Ratio 1.33 01/15/19 17:13: Urine Color STRAW, Urine Appearance CLEAR, Urine pH 7.0, Urine Specific [place]ley 1.018, Urine Protein NEGATIVE, Urine Glucose (UA) NEGATIVE, Urine Ketones TRACEH, Urine Blood NEGATIVE, Urine Nitrite NEGATIVE, Urine Bilirubin NEGATIVE, Urine Urobilinogen 0.2, Urine Leukocyte Esterase NEGATIVE, Urine WBC (Auto) 1, Urine RBC (Auto) 2, Urine Hyaline Casts (Auto) 0, Urine Bacteria (Auto) 1+H, Urine Squamous Epithelial Cells 0, Urine Sperm (Auto) CBC/BMP Laboratory Tests 01/15/19 14:28 Microbiology Microbiology 01/15/19 Respiratory Virus Panel (PCR) ([facility]) - Final, Complete Human Rhinovirus/Enterovirus Assessment/Plan 58 year old female with 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 and breast reconstruction with implant in 2003, revision of reconstruction in 2005, 2008, 2010, 2011, 2012 due to asymetry form weight shifts, H/o Morbid obesity s/p gastric bypass surgery in 2008 , right breast reduction surgery followed by right mastectomy for some calcifications suspicious for malignancy which came out to be fat necrosis and fibrous tissues, s/p right breast reconstruction with implant, Obesity , diabetes with neuropathy and retinopathy, Chronic asthma, hypertension, hyperlipidemia, h/o chronic low back pain, incarcerated abdominal incisional hernia repair, appendectomy, cholecystectomy, lumpetomy of right breast in 1997 who has not needed any diabetic medications or antihypertensive medications since her bypass surgery with loss of about 120 lbs presented to the ED today for 4 days history of headache, dizziness, sinus fullness, nasal congestion, post nasal drip and sore throat. She also started having some difficulty in her breathing feeling a little chest tightness and cough since yesterday. Her nebulizer machine has been broken . She was using her albuterol inhaler but did not give her complete relief. She felt her asthma was acting up due to the cold she was having. So came to the ED for evaluation. In the ED she was found to have a URI due to human rhinovirus infection and mild asthma exacerbation. SHe had a nebulizer treatment with improvemnet of her respiratory symptoms. However her blood pressure was noted to be very high 210/98 for several hours. She received hydrazine IV in the ED with no control of her BP so was admitted for hypertensive urgency. Hypertensive Urgency will start patient on amlodipine and also give hydralazie IV q 6 h if needed. 2 gram sodium diet. Viral URI with Human rhinovirus/enterovirus symptomatic treatment Asthma exacerbation continue albuterol nebs and budesonide nebs. DOes not need prednisone. Diabetes diet controlled. Plan / VTE VTE Prophylaxis Ordered?: Yes DEE DEE MCLEOD MD Jan 15, 2019 23:49
[2019-01-16] VITALS: BP 130/60
[2019-01-16] MEDS: ALBUTEROL SULFATE 2.5 MG/0.5 ML INH NEB SOLN NEB SCH ×2 (00:08→07:34)
[2019-01-16] MEDS: AZELASTINE 137MCG NASAL SPY 30 ML (ASTELIN) SCH ×2 (00:58→08:53)
[2019-01-16] MEDS: BUDESONIDE 0.25 MG/2 ML INHALATION SUSPENSION INH SCH ×2 (03:40→07:34)
[2019-01-16 04:00] VITALS: BP 120/60
[2019-01-16] MEDS: hydrALAZINE INJ 20 MG/ML VIAL IV SCH ×2 (04:00→10:00)
--- NOTE | 2019-01-16 07:38 | REP ---
CT ANGIOGRAM CHEST: 01/15/2019. COMPARISON CHEST X-RAY: 01/15/2019, 08/28/2014. CLINICAL HISTORY: Pleuritic chest pain. History of breast carcinoma. TECHNIQUE: A bolus of 75 mL Isovue 370 and scanning through the chest with our pulmonary angiogram protocol with both coronal and sagittal reconstructions and standard and MIP reformats. FINDINGS: Lung deleon are well inflated. Some minor dependent atelectatic changes posteriorly but no effusion, acute infiltrate, parenchymal mass or pulmonary nodule. Heart size shows left atrium enlarged, left ventricle mildly prominent but no pericardial thickening or effusion. The aorta is without aneurysm or dissection and has a few calcifications in the posterior arch and descending portion. The main, right, and left pulmonary arteries and the mediastinum are without filling defects or vessel cutoff. The lobar, segmental and visible subsegmental arteries are also without vessel cutoff or filling defects that would suggest pulmonary embolism. No mediastinal or hilar pathologic sized adenopathy. There is no axillary or supraclavicular mass. Breast implants from reconstructions after mastectomy with axillary surgical clips on the left. I see no hepatomegaly, splenomegaly, focal hepatic or splenic lesion nor intrahepatic biliary dilatation. Gallbladder without calcified stone or mass. No generalized ascites. There is an incarcerated hiatal hernia without strangulation. It is unchanged from studies dating back to CTs 2015 of the abdomen. Gastric bypass reji are also noted. That portion of pancreas included is unremarkable. Adrenal glands are intact. Upper poles kidney intact. Small bowel loops and visible colon unremarkable. The bone windows show the sternum, manubrium, clavicles and scapula intact. AC joints and shoulder joints with some degenerative changes apically particularly with subchondral cysts and degenerative change in the glenoid on the right. Humeral heads intact. Ribs without focal lesion. Marginal osteophytes at multiple levels in the spine. There is most prominently a posterior osteophyte causing some central canal stenosis in a right paracentral location at the T8-9 level. IMPRESSION: 1. No CT evidence of pulmonary thromboembolism. 2. No aortic aneurysm or dissection. 3. Some cardiomegaly with left atrium and ventricular enlargement and no pericardial thickening or effusion. 4. Status post bilateral mastectomy and reconstructions with implants in place and axillary clips on the left. 5. Prior gastric bypass surgery in the incarcerated hiatal hernia without strangulation unchanged. No acute finding. Electronically Signed by Juwan Rogel MD 01/16/2019 07:47 A
--- NOTE | 2019-01-16 07:38 | REP ---
CT BRAIN WITHOUT CONTRAST: 01/15/2019. Clinical history: Dizziness. Prior history of breast cancer. Technique: Standard noncontrast images were provided. Technologist notes indicate the patient was unable to hold still. Submitted images are best possible. Images at the superior aspect of the field of view were repeated twice with some success. Findings: Noncontrast images show lateral ventricles midline, symmetric and the without dilatation or displacement. Third and fourth ventricles were unremarkable. The basal ganglia were unremarkable. The white matter tracts are intact. Duong-white junction differentiation well maintained. Cortical stripe preserved. There is no atrophy, hemorrhage, mass, acute infarct or extra-axial fluid collection. Brainstem was unremarkable. Cerebellum without acute finding. No posterior fossa bleed or atrophy. Basal cisterns intact. Mastoids and visualized sinuses were clear. Skull base and calvarium show no fracture or focal lesion. Impression: 1. Normal noncontrast CT brain. No intracranial hemorrhage, acute infarct, edema or mass. 2. No evidence of fracture of the skull base or calvarium. Sinuses and mastoids were clear. Electronically Signed by Juwan Rogel MD 01/16/2019 07:47 A
[2019-01-16 08:00] VITALS: BP 126/70
[2019-01-16] MEDS: BENZONATATE 100 MG CAP PO SCH ×2 (08:52)
[2019-01-16] MEDS: DOCUSATE SODIUM 100 MG CAP PO SCH (08:52)
[2019-01-16] MEDS ORDERED: amLODIPine 10 MG TAB PO SCH (09:00)
[2019-01-16] MEDS ORDERED: ENOXAPARIN 40 MG/0.4 ML SYRINGE (J1650) SC SCH (09:00)
[2019-01-16] MEDS ORDERED: PANTOPRAZOLE 40MG TAB (PROTONIX) PO SCH (09:00)
[2019-01-16] MEDS ORDERED: ACETAMINOPHEN 500 MG TAB PO PRN (09:00)
[2019-01-16] MEDS ORDERED: FOLIC ACID 1 MG TAB PO SCH (09:00)
[2019-01-16] MEDS ORDERED: FERROUS SULFATE 325MG TAB PO SCH (09:00)
[2019-01-16] MEDS ORDERED: AZEL1SPR3 (09:41)
[2019-01-16] MEDS ORDERED: BENZ-18 PO (09:41)
[2019-01-16] MEDS ORDERED: ACET-683 PO (09:41)
[2019-01-16] MEDS ORDERED: AMLO5TAB6 PO (09:41)
[2019-01-16] MEDS ORDERED: BUDE0.254 INH (09:41)
[2019-01-16 10:00] VITALS: BP 120/68
--- NOTE | 2019-01-16 10:33 | DS.PDOC ---
Discharge Summary General Date of Admission Jan 15, 2019 at 18:00 Date of Discharge 01/16/19 Discharge Summary PROCEDURES PERFORMED DURING STAY: [None]. 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 and breast reconstruction with implant in 2003, revision of left breast reconstruction in 2005, 2008, 2010, 2011, 2012 due to asymmetry form weight shifts, H/o Morbid obesity s/p gastric bypass surgery in 2008 , right breast reduction surgery followed by right mastectomy for some calcifications suspicious for malignancy which came out to be fat necrosis and fibrous tissues, s/p right breast reconstruction with implant, Obesity , diabetes with neuropathy and retinopathy, Chronic asthma, hypertension, hyperlipidemia, h/o chronic low back pain, incarcerated abdominal incisional hernia repair, appendectomy, cholecystectomy, lumpetomy of right breast in 1997, Incarcerated hiatal hernia COMPLICATIONS/CHIEF COMPLAINT: Hypertensive Urgency, Uri. 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 and breast reconstruction with implant in 2003, revision of reconstruction in 2005, 2008, 2010, 2011, 2012 due to asymetry form weight shifts, H/o Morbid obesity s/p gastric bypass surgery in 2008 , right breast reduction surgery followed by right mastectomy for some calcifications suspicious for malignancy which came out to be fat necrosis and fibrous tissues, s/p right breast reconstruction with implant, Obesity , diabetes with neuropathy and retinopathy, Chronic asthma, hypertension, hyperlipidemia, h/o chronic low back pain, incarcerated abdominal incisional hernia repair, appendectomy, cholecystectomy, lumpetomy of right breast in 1997 who has not needed any diabetic medications or antihypertensive medications since her bypass surgery with loss of about 120 lbs presented to the ED today for 4 days history of headache, dizziness, sinus fullness, nasal congestion, post nasal drip and sore throat. She also started having some difficulty in her breathing feeling a little chest tightness and cough since yesterday. Her nebulizer machine has been broken . She was using her albuterol inhaler but did not give her complete relief. She felt her asthma was acting up due to the cold she was having. So came to the ED for evaluation. In the ED she was found to have a URI due to human rhinovirus infection and mild asthma exacerbation. SHe had a nebulizer treatment with improvemnet of her respiratory symptoms. However her blood pressure was noted to be very high 210/98 for several hours. She received hydrazine IV in the ED with no control of her BP so was admitted for hypertensive urgency. Hypertensive Urgency will start patient on amlodipine and also give hydralazie IV q 6 h if needed. 2 gram sodium diet. Viral URI with Human rhinovirus/enterovirus symptomatic treatment Asthma exacerbation continue albuterol nebs and budesonide nebs. DOes not need prednisone. Diabetes diet controlled. DISCHARGE MEDICATIONS: Please see below. ALLERGIES: Please see below. PHYSICAL EXAMINATION ON DISCHARGE: VITAL SIGNS: Please see below. General Exam: Positive: Alert, Cooperative, No Acute Distress Eye Exam: Positive: PERRLA, Conjunctiva & lids normal, EOMI; Negative: Sclera icteric ENT Exam: Positive: Atraumatic, Mucous membr. moist/pink, Pharynx Normal Neck Exam: Positive: Supple; Negative: JVD, thyromegaly Chest Exam: Positive: Clear to auscultation, Normal air movement Heart Exam: Positive: Rate Normal, Regular Rhythm, Normal S1, Normal S2; Negative: Murmurs, Rubs Telemetry: Positive: No significant arrhythmia Abdomen Exam: Positive: Normal bowel sounds, Soft; Negative: Tenderness, Hepatospenomegaly Extremity Exam: Negative: Clubbing, Cyanosis, Edema Skin Exam: Positive: Nl turgor and temperature; Negative: Breakdown, Lesion Psych Exam: Positive: Mental status NL, Mood NL, Oriented x 3 LABORATORY DATA: Please see below. ACTIVITY: [As tolerated]. DIET: 2 gm sodium and carb consistent. DISCHARGE PLAN: Home DISPOSITION: . DISCHARGE INSTRUCTIONS: PMD in 1 week Follow up Echo reports. DISCHARGE CONDITION: [Stable]. TIME SPENT ON DISCHARGE: 35 minutes. Vital Signs/I&Os Vital Signs Date Time Temp Pulse Resp B/P (MAP) Pulse Ox O2 Delivery O2 Flow Rate FiO2 01/16/19 08:00 97.4 84 18 126/70 (88) 96 Room Air I&O- Last 24 Hours up to 6 AM 01/16/19 06:00 Intake Total 300 ml Output Total 400 ml Balance -100 ml Laboratory Data Labs 24H Laboratory Tests 2 01/15/19 14:28: Immature Granulocyte % (Auto) 0.2, Neutrophils (%) (Auto) 60.6, Lymphocytes (%) (Auto) 25.9, Monocytes (%) (Auto) 8.7H, Eosinophils (%) (Auto) 3.8H, Basophils (%) (Auto) 0.8, Neutrophils # (Auto) 3.0, Lymphocytes # (Auto) 1.3L, Monocytes # (Auto) 0.4, Eosinophils # (Auto) 0.2, Basophils # (Auto) 0.0, Nucleated Red Blood Cells % (auto) 0.0, Anion Gap 5L, Glomerular Filtration Rate > 60.0, C alcium Level 8.3L, Total Bilirubin 0.3, Aspartate Amino Transf (AST/SGOT) 24, Alanine Aminotransferase (ALT/SGPT) 40, Alkaline Phosphatase 83, Total Creatine Kinase 116, Creatine Kinase MB 1.4, Creatine Kinase MB Relative Index 1.21, Troponin I < 0.02, NC-[id number]-Type Natriuretic Peptide 269H, Total Protein 6.3L, Albumin 3.6, Albumin/Globulin Ratio 1.33 01/15/19 17:13: Urine Color STRAW, Urine Appearance CLEAR, Urine pH 7.0, Urine Specific [place] 1.018, Urine Protein NEGATIVE, Urine Glucose (UA) NEGATIVE, Urine Ketones TRACEH, Urine Blood NEGATIVE, Urine Nitrite NEGATIVE, Urine Bilirubin NEGATIVE, Urine Urobilinogen 0.2, Urine Leukocyte Esterase NEGATIVE, Urine WBC (Auto) 1, Urine RBC (Auto) 2, Urine Hyaline Casts (Auto) 0, Urine Bacteria (Auto) 1+H, Urine Squamous Epithelial Cells 0, Urine Sperm (Auto) CBC/BMP Laboratory Tests 01/15/19 14:28 Microbiology Microbiology 01/15/19 Respiratory Virus Panel (PCR) (EAN) - Final, Complete Human Rhinovirus/Enterovirus Discharge Medications Scheduled Amlodipine Besylate (Amlodipine Besylate) 5 Mg Tablet, 1 TAB PO DAILY Azelastine HCl (Azelastine HCl) 0.1% Driscoll.pump, 2 SPRAY NA BID Budesonide (Budesonide) 0.25 Mg/2 Ml Ampul.neb, 0.25 MG INH RBID Cholecalciferol (Vitamin D3) (Vitamin D3) 1,000 Unit Capsule, 1,000 UNIT PO DAILY, (Reported) Chrom Amor/Brindal Radford (Garcinia Cambogia Tablet) 1 Each Tablet, 1 TAB PO DA SHIVA, (Reported) Ferrous Sulfate (Ferrous Sulfate) 325 Mg Tab, 325 MG PO DAILY, (Reported) Folic Acid (Folic Acid) 1 Mg Tablet, 1 MG PO DAILY, (Reported) Furosemide (Lasix) 40 Mg Tab, 40 MG PO DAILY, (Reported) Multivit-Minerals/Folic Acid (Adult Multivitamin Gummies) 1 Chw Chw, 1 CHW PO DAILY, (Reported) Pantoprazole Sodium (Pantoprazole Sodium) 40 Mg Tablet.dr, 40 MG PO DAILY, (Reported) Vitamin B Complex (Vitamin B Complex) 1 Each Tablet, 1 TAB PO DAILY, (Reported) Scheduled PRN Acetaminophen (Acetaminophen) 500 Mg Tablet, 1,000 MG PO TIDP PRN for PAIN OR FEVER Albuterol Sulf (Albuterol Sulfate) 2.5 Mg/3 Ml Vial.neb, 2.5 MG NEB Q6H PRN for SOB/WHEEZING, (Reported) Albuterol Sulfate (Proair Hfa) 108 Mcg/Act Aer, 2 PUFF INH Q6H PRN for WHEEZING, (Reported) Benzonatate (Benzonatate) 100 Mg Capsule, 100 MG PO TIDP PRN for COUGH Allergies Coded Allergies: pregabalin (Verified Allergy, Severe, throat swelling, 05/26/18) Penicillins (Verified Allergy, Intermediate, rash, 06/29/18) gabapentin (Verified Allergy, Intermediate, hives, 05/26/18) metronidazole (Verified Allergy, Mild, rash, 05/26/18) quetiapine (Verified Adverse Reaction, Mild, lethargic, 05/26/18) DEE DEE MCLEOD MD Jan 16, 2019 10:33
--- NOTE | 2019-01-16 16:24 | ECHO ---
DATE OF STUDY: 01/16/2019 REFERRING PHYSICIAN: Dr. Jessica Sosa INDICATION: Cardiomegaly. HEIGHT: 158 cm WEIGHT: 85 kg 2-D MEASUREMENTS: Ventricular septum: 1.14 cm Posterior wall: 1.11 cm Left ventricle diastole: 4.9 cm Aortic root: 3.1 cm Aortic annulus: 2.0 cm Left atrium: 3.4 cm Left atrial volume index: 21 Inferior vena cava: 1.2 cm DOPPLER MEASUREMENTS: Aortic valve velocity: 138 cm/s LVOT velocity: 158 cm/s LVOT VTI: 27.7 cm Mitral E velocity: 88.3 cm/s Mitral A velocity: 103 cm/s Mitral deceleration time: 215 ms Pulmonary acceleration time: 155 ms No aortic regurgitation. No aortic stenosis. No mitral regurgitation. No tricuspid regurgitation. No pulmonic regurgitation. MITRAL ANNULAR TISSUE DOPPLER: E prime lateral: 8.1 cm/s E prime septal: 9.6 cm/s DESCRIPTION: Rhythm was sinus. Image quality was moderately technically difficult. No pericardial effusion. This was a 2-D, M-mode, color flow Doppler and pulse waved Doppler examination and included mitral annular tissue Doppler. CONCLUSIONS: 1. Normal left ventricle internal dimensions. Mild focal hypertrophy of the basilar anterior ventricular septum. Normal LV wall thickness elsewhere. Normal LV wall motion and wall thickening. Normal LV systolic function. Left ventricular ejection fraction (LVEF) 65% by visual estimate. Normal LV diastolic function for age. 2. Normal right ventricle size and systolic function. 3. Normal size of the atria. 4. No pericardial effusion. 5. Otherwise, normal appearing echocardiogram-Doppler findings. Moderately technically difficult echocardiogram.
== END 2019-01-16 13:07 | disposition home or self-care (01) | DRG 199 ==
LOC: M ED 12:08 → M ED INP 18:00 → M PCU 20:02
PROVIDERS: ADMIT Internal Medicine Nephrology; ATTEND Internal Medicine Nephrology
DX: I16.0 Hypertensive urgency (principal); E11.40 Type 2 diabetes mellitus with diabetic neuropathy, unspecified; J45.901 Unspecified asthma with (acute) exacerbation; E11.319 Type 2 diabetes mellitus with unspecified diabetic retinopathy without macular edema; J06.9 Acute upper respiratory infection, unspecified; Z85.3 Personal history of malignant neoplasm of breast; Z90.13 Acquired absence of bilateral breasts and nipples; Z98.84 Bariatric surgery status; E78.5 Hyperlipidemia, unspecified; M54.5 Low back pain; Z79.899 Other long term (current) drug therapy; Z88.0 Allergy status to penicillin; Z88.8 Allergy status to other drugs, medicaments and biological substances; B34.9 Viral infection, unspecified; I10 Essential (primary) hypertension

== ENCOUNTER 2019-02-19 13:58 | Emergency (ER) | payer OTHER ==
[~2019-02-19] VITALS: Ht 152.4 cm; Wt 81.8 kg
[~2019-02-19 13:58] MED LIST changes: +ACET-683 PO; +ALBU83IN NEB; +AMLO5TAB6 PO; +AZEL1SPR3; +BENZ-18 PO; +BUDE0.254 INH; +FOLI1TAB11 PO; +PANT40TA3 PO
--- NOTE | 2019-02-19 15:28 | REP ---
Left lower extremity Duplex Doppler venous ultrasound: Real time compression and duplex Doppler interrogation of the left lower extremity deep venous system is performed. The left common femoral, superficial femoral and popliteal veins are fully compressible with transducer pressure and demonstrate normal spontaneous and phasic flow, without evidence of deep venous thrombosis. Impression: No evidence of deep venous thrombosis of the left lower extremity femoral popliteal venous system. There is a popliteal cyst measuring 4.7 x 1.9 x 3.4 cm. Electronically Signed by Lance Duong MD 02/19/2019 03:19 P
[2019-02-19 15:32] LABS: BASO % 0.5 % (0.0-1.0); EOS # 0.1 10^3/uL (0.0-0.5); HEMOGLOBIN 13.9 g/dl (12.0-15.5); LYMPH # 1.4 10^3/uL (1.5-5.0); LYMPH % 24.8 % (24.0-44.0); MEAN CORPUSCULAR HEMOGLOBIN 30.2 pg (27.0-33.0); MEAN CORPUSCULAR HGB CONC 32.3 g/dl (32.0-36.5); MEAN CORPUSCULAR VOLUME 93.3 fl (80.0-96.0); MONO # 0.4 10^3/uL (0.0-0.8); MONO % 7.5 % (0.0-5.0); NEUTROPHILS # 3.6 10^3/uL (1.5-8.5); PLATELET COUNT, AUTOMATED 172 10^3/uL (150-450); RED BLOOD COUNT 4.61 10^6/uL (4.00-5.40); WHITE BLOOD COUNT 5.6 10^3/uL (4.0-10.0)
[2019-02-19 15:42] VITALS: BP 107/57
[2019-02-19 15:56] LABS: ERYTHROCYTE SEDIMENTATION RATE 6 mm/hr (0-30)
[2019-02-19 16:02] LABS: ALBUMIN 3.7 GM/DL (3.2-5.2); ALT/SGPT 44 U/L (12-78); BILIRUBIN,DIRECT 0.1 MG/DL (0.0-0.2); BILIRUBIN,TOTAL 0.3 MG/DL (0.2-1.0); BLOOD UREA NITROGEN 18 MG/DL (7-18); C REACTIVE PROTEIN QUANTITATIV < 0.30 MG/DL (0.00-0.30); CALCIUM LEVEL 8.2 MG/DL (8.5-10.1); CARBON DIOXIDE LEVEL 31 MEQ/L (21-32); CHLORIDE LEVEL 108 MEQ/L (98-107); CREATININE FOR GFR 0.66 MG/DL (0.55-1.30); GLOMERULAR FILTRATION RATE > 60.0 (>51); GLUCOSE, FASTING 96 MG/DL (70-100); POTASSIUM SERUM 4.2 MEQ/L (3.5-5.1); SODIUM LEVEL 142 MEQ/L (136-145); TOTAL PROTEIN 6.4 GM/DL (6.4-8.2)
== END 2019-02-19 15:43 | disposition home or self-care (01) ==
LOC: M ED 13:58
DX: M71.22 Synovial cyst of popliteal space [Baker], left knee (principal); I10 Essential (primary) hypertension; J44.9 Chronic obstructive pulmonary disease, unspecified; Z79.899 Other long term (current) drug therapy; Z88.0 Allergy status to penicillin; Z88.8 Allergy status to other drugs, medicaments and biological substances

== ENCOUNTER → 2019-02-27 | Outpatient (CLI) | payer OTHER ==
[2019-02-27 17:11] LABS: ALBUMIN 3.9 GM/DL (3.2-5.2); BLOOD UREA NITROGEN 19 MG/DL (7-18); CALCIUM LEVEL 8.6 MG/DL (8.5-10.1); CARBON DIOXIDE LEVEL 27 MEQ/L (21-32); CHLORIDE LEVEL 105 MEQ/L (98-107); CREATININE FOR GFR 0.62 MG/DL (0.55-1.30); GLOMERULAR FILTRATION RATE > 60.0 (>51); GLUCOSE, FASTING 85 MG/DL (70-100); PHOSPHORUS LEVEL 4.6 MG/DL (2.5-4.9); POTASSIUM SERUM 4.3 MEQ/L (3.5-5.1); SODIUM LEVEL 141 MEQ/L (136-145)
== END ==
LOC: M LAB 16:04
PROVIDERS: ATTEND Internal Medicine Cardiovascular Disease
DX: I11.0 Hypertensive heart disease with heart failure (principal)

== ENCOUNTER → 2019-03-31 | Outpatient (REF) | payer OTHER ==
[2019-03-31 17:19] LABS: INFLUENZA A AMPLIFICATION NEGATIVE (NEGATIVE); INFLUENZA B AMPLIFICATION POSITIVE (NEGATIVE)
== END ==
LOC: M LAB REF 16:18
PROVIDERS: ATTEND Physician Assistant Medical
DX: J11.1 Influenza due to unidentified influenza virus with other respiratory manifestations (principal)

== ENCOUNTER → 2019-05-31 | Outpatient (REF) | payer OTHER ==
[2019-05-31 18:57] LABS: EOS # 0.1 10^3/uL (0.0-0.5); EOS % 1.7 % (0.0-3.0); HEMATOCRIT 42.4 % (36.0-47.0); HEMOGLOBIN 14.1 g/dl (12.0-15.5); LYMPH # 1.4 10^3/uL (1.5-5.0); LYMPH % 35.7 % (24.0-44.0); MEAN CORPUSCULAR HEMOGLOBIN 30.8 pg (27.0-33.0); MEAN CORPUSCULAR HGB CONC 33.3 g/dl (32.0-36.5); MEAN CORPUSCULAR VOLUME 92.6 fl (80.0-96.0); MONO # 0.4 10^3/uL (0.0-0.8); NEUTROPHILS # 2.1 10^3/uL (1.5-8.5); NEUTROPHILS % 52.4 % (36.0-66.0); PLATELET COUNT, AUTOMATED 189 10^3/uL (150-450); RED BLOOD COUNT 4.58 10^6/uL (4.00-5.40)
[2019-05-31 19:10] LABS: ALBUMIN 3.8 GM/DL (3.2-5.2); ALT/SGPT 49 U/L (12-78); BILIRUBIN,TOTAL 0.3 MG/DL (0.2-1.0); BLOOD UREA NITROGEN 21 MG/DL (7-18); CALCIUM LEVEL 8.6 MG/DL (8.5-10.1); CARBON DIOXIDE LEVEL 30 MEQ/L (21-32); CHLORIDE LEVEL 104 MEQ/L (98-107); CHOLESTEROL LEVEL 224 MG/DL (<200); CHOLESTEROL RISK RATIO 3.733 (<5); CREATININE FOR GFR 0.66 MG/DL (0.55-1.30); FERRITIN 235 NG/ML (8-252); FREE T4 0.99 NG/DL (0.76-1.46); GLOMERULAR FILTRATION RATE > 60.0 (>51); GLUCOSE, FASTING 92 MG/DL (70-100); HDL CHOLESTEROL 60 MG/DL (>40); IRON (FE) 77 UG/DL (50-170); LDL CHOLESTEROL 130 MG/DL (<100); NON-HDL-C 164 MG/DL; POTASSIUM SERUM 4.3 MEQ/L (3.5-5.1); SODIUM LEVEL 140 MEQ/L (136-145); TOTAL PROTEIN 7.1 GM/DL (6.4-8.2); TRIGLYCERIDES LEVEL 169 MG/DL (<150)
[2019-05-31 19:13] LABS: TOTAL 25(OH) VITAMIN D 33.9 NG/ML (30.0-100.0); VITAMIN B12 LEVEL 351 PG/ML (247-911)
[2019-05-31 19:14] LABS: FOLATE > 24.0 NG/ML (>5.4)
[2019-05-31 19:15] LABS: HEMOGLOBIN A1c 5.3 %
== END ==
LOC: M LAB REF 18:32
PROVIDERS: ATTEND Nurse Practitioner Adult Health
DX: Z13.9 Encounter for screening, unspecified (principal)

== ENCOUNTER → 2019-07-19 | Outpatient (REF) | payer OTHER ==
[2019-07-19 22:56] LABS: APPEARANCE, URINE CLEAR (CLEAR); BACTERIA, URINE AUTO NEGATIVE (NEGATIVE); BILIRUBIN, URINE AUTO NEGATIVE (NEGATIVE); BLOOD, URINE BLOOD NEGATIVE (NEGATIVE); COLOR, URINE YELLOW (YELLOW); GLUCOSE, URINE (UA) AUTO NEGATIVE (NEGATIVE); KETONE, URINE AUTO NEGATIVE (NEGATIVE); LEUKOCYTE ESTERASE, URINE AUTO 1+ (NEGATIVE); MUCUS, URINE SMALL (NEGATIVE); NITRITE, URINE AUTO NEGATIVE (NEGATIVE); PROTEIN, URINE AUTO NEGATIVE (NEGATIVE); RBC, URINE AUTO 1 /HPF (0-3); SPECIFIC GRAVITY URINE AUTO 1.023 (1.002-1.035); SQUAMOUS EPITHELIAL CELL UR AU 0 /HPF (0-6); UROBILINOGEN, URINE AUTO 0.2 mg/dL (0.0-2.0); WBC, URINE AUTO 10 /HPF (0-3)
== END ==
LOC: M LAB REF 22:38
PROVIDERS: ATTEND Physician Assistant
DX: N39.0 Urinary tract infection, site not specified (principal)

== ENCOUNTER → 2019-12-13 | Outpatient (REF) | payer OTHER ==
[~2019-12-13] MED LIST changes: +AMLO1TAB24 PO; -AMLO5TAB6 PO; +PANT40TA29 PO; -PANT40TA3 PO
[2019-12-13 19:14] LABS: HEMOGLOBIN A1c 5.3 %
[2019-12-13 19:25] LABS: MALB URINE SIEMENS 7.3 MG/L; MAU/CREAT RATIO 5.8 MCG/MG (0.0-30.0)
[2019-12-13 21:29] LABS: ALBUMIN 3.8 GM/DL (3.2-5.2); ALT/SGPT 41 U/L (12-78); AMYLASE 41 U/L (25-115); BILIRUBIN,TOTAL 0.2 MG/DL (0.2-1.0); BLOOD UREA NITROGEN 20 MG/DL (7-18); CALCIUM LEVEL 8.7 MG/DL (8.5-10.1); CARBON DIOXIDE LEVEL 28 MEQ/L (21-32); CHLORIDE LEVEL 111 MEQ/L (98-107); CREATININE FOR GFR 0.78 MG/DL (0.55-1.30); GLOMERULAR FILTRATION RATE > 60.0 (>51); GLUCOSE, FASTING 146 MG/DL (70-100); LIPASE 143 U/L (73-393); POTASSIUM SERUM 3.6 MEQ/L (3.5-5.1); SODIUM LEVEL 143 MEQ/L (136-145); TOTAL PROTEIN 6.6 GM/DL (6.4-8.2)
== END ==
LOC: M LAB REF 16:54
PROVIDERS: ATTEND Nurse Practitioner Adult Health
DX: E11.9 Type 2 diabetes mellitus without complications (principal)

== ENCOUNTER → 2020-05-23 | Outpatient (REF) | payer OTHER ==
[~2020-05-23] MED LIST changes: -FOLI400T; +FOLI400T13
[2020-05-23 18:01] LABS: BASO % 0.6 % (0.0-1.0); EOS # 0.1 10^3/uL (0.0-0.5); EOS % 1.6 % (0.0-3.0); HEMATOCRIT 43.8 % (36.0-47.0); HEMOGLOBIN 14.4 g/dl (12.0-15.5); LYMPH # 1.6 10^3/uL (1.5-5.0); LYMPH % 31.3 % (24.0-44.0); MEAN CORPUSCULAR HEMOGLOBIN 30.8 pg (27.0-33.0); MEAN CORPUSCULAR HGB CONC 32.9 g/dl (32.0-36.5); MEAN CORPUSCULAR VOLUME 93.6 fl (80.0-96.0); MONO # 0.5 10^3/uL (0.0-0.8); MONO % 9.7 % (2.0-8.0); NEUTROPHILS # 2.8 10^3/uL (1.5-8.5); NEUTROPHILS % 56.6 % (36.0-66.0); PLATELET COUNT, AUTOMATED 188 10^3/uL (150-450); RED BLOOD COUNT 4.68 10^6/uL (4.00-5.40)
[2020-05-23 19:47] LABS: HEMOGLOBIN A1c 5.4 %
[2020-05-23 21:08] LABS: ALBUMIN 3.9 GM/DL (3.2-5.2); ALT/SGPT 45 U/L (12-78); BILIRUBIN,TOTAL 0.3 MG/DL (0.2-1.0); BLOOD UREA NITROGEN 22 MG/DL (7-18); CALCIUM LEVEL 9.3 MG/DL (8.5-10.1); CARBON DIOXIDE LEVEL 32 MEQ/L (21-32); CHLORIDE LEVEL 105 MEQ/L (98-107); CREATININE FOR GFR 0.68 MG/DL (0.55-1.30); FERRITIN 178 NG/ML (8-252); GLOMERULAR FILTRATION RATE > 60.0 (>51); GLUCOSE, FASTING 89 MG/DL (70-100); NT-PRO BNP 123 PG/ML (<125); POTASSIUM SERUM 4.5 MEQ/L (3.5-5.1); SODIUM LEVEL 142 MEQ/L (136-145); TOTAL 25(OH) VITAMIN D 31.6 NG/ML (30.0-100.0); TOTAL PROTEIN 6.8 GM/DL (6.4-8.2)
[2020-05-24 00:40] LABS: CHOLESTEROL LEVEL 218 MG/DL (<200); HDL CHOLESTEROL 63 MG/DL (>40); IRON (FE) 107 UG/DL (50-170); LDL CHOLESTEROL 122 MG/DL (<100); NON-HDL-C 155 MG/DL; PERCENT SATURATION 34.2 % (13.2-45.0); TOTAL IRON BINDING CAPACITY 313 UG/DL (250-450); TRIGLYCERIDES LEVEL 164 MG/DL (<150)
[2020-05-24 10:12] LABS: VITAMIN B12 LEVEL 542 PG/ML
[2020-05-24 10:14] LABS: FOLATE > 24.0 NG/ML
== END ==
LOC: M LAB REF 16:16
PROVIDERS: ATTEND Pediatrics
DX: D64.9 Anemia, unspecified (principal); E11.9 Type 2 diabetes mellitus without complications; E55.9 Vitamin D deficiency, unspecified; I11.0 Hypertensive heart disease with heart failure

== ENCOUNTER 2020-05-30 11:09 | Emergency (ER) | payer OTHER ==
[~2020-05-30] VITALS: Ht 152.4 cm; Wt 84.1 kg
[2020-05-30 11:10] VITALS: BP 153/72
[2020-05-30] MEDS ORDERED: CARV3.12 (11:19)
[2020-05-30] MEDS ORDERED: ARNU1INH (11:19)
--- NOTE | 2020-05-30 11:54 | REP ---
INDICATION: fall pain over right ribs COMPARISON: None. TECHNIQUE: Frontal view of the chest with five views of the right hemithorax. FINDINGS: Frontal view of the chest demonstrates no acute cardiopulmonary process, contusion, effusion, or pneumothorax. Multiple views of the hemithorax demonstrates no acute rib fracture/injury or pathology. IMPRESSION: Normal rib series. <Electronically signed by Asad Miguel > 05/30/20 [id number]
== END 2020-05-30 12:21 | disposition home or self-care (01) ==
LOC: M ED 11:09
DX: R07.89 Other chest pain (principal); E11.9 Type 2 diabetes mellitus without complications; I50.9 Heart failure, unspecified; J44.9 Chronic obstructive pulmonary disease, unspecified; J45.909 Unspecified asthma, uncomplicated; K58.9 Irritable bowel syndrome, unspecified; Z98.84 Bariatric surgery status; Z79.899 Other long term (current) drug therapy; Z88.0 Allergy status to penicillin; Z88.8 Allergy status to other drugs, medicaments and biological substances

== ENCOUNTER → 2020-07-04 | Outpatient (CLI) | payer OTHER ==
[~2020-07-04] MED LIST changes: +ARNU1INH; +CARV3.12; +GASTROGRAFIN SOLUTION 30ML (Q9963) As Ordered ONE; +ISOVUE-370 76% 100ML VIAL As Ordered ONE
--- NOTE | 2020-07-04 13:07 | REPVR ---
PROCEDURE INFORMATION: Exam: CT Abdomen With Contrast Exam date and time: 07/04/2020 12:03 PM Age: 59 years old Clinical indication: Abdominal pain; Localized; Upper; Additional info: Upper quad pain TECHNIQUE: Imaging protocol: Computed tomography images of the abdomen with intravenous contrast. Radiation optimization: All CT scans at this facility use at least one of these dose optimization techniques: automated exposure control; mA and/or kV adjustment per patient size (includes targeted exams where dose is matched to clinical indication); or iterative reconstruction. Contrast material: ISOVUE 370; Contrast volume: 100 ml; Contrast route: INTRAVENOUS (IV); COMPARISON: CT ABD/PEL W/IV ORAL CONTRAS 05/26/2018 6:37 PM FINDINGS: Liver: There are no focal liver lesions present, no mass is identified. Gallbladder and bile ducts: The gallbladder is normal. Pancreas: The pancreas is normal. Spleen: The spleen is normal. Adrenals: The adrenal glands are normal. Kidneys and ureters: The kidneys and ureters are normal including delayed images. There is no evidence of hydronephrosis or calculi. Stomach and bowel: A large hiatal hernia is present.There has been a gastric stapling and bypass. There is a cecum bascule. Appendix: There are changes suggesting appendectomy. Intraperitoneal space: Unremarkable. No free air. No significant fluid collection. Lymph nodes: Unremarkable. No enlarged lymph nodes. Vasculature: The vasculature demonstrates diffuse moderate atherosclerotic calcification. Bones/joints: A left convex spinal curvature is observed.The spine demonstrates moderate degenerative changes at multiple levels. Soft tissues: Breast implants appear intact. IMPRESSION: A large hiatal hernia is present.There has been a gastric stapling and bypass. Electronically signed by: Sam Deal On 07/04/2020 13:07:29 PM
== END ==
LOC: M RAD 10:34
PROVIDERS: ATTEND Family Medicine Addiction Medicine
DX: K44.9 Diaphragmatic hernia without obstruction or gangrene (principal); Z98.84 Bariatric surgery status; Z98.82 Breast implant status
CPT/HCPCS: 74160; Q9963; Q9967

== ENCOUNTER → 2020-07-18 | Outpatient (CLI) | payer OTHER ==
[~2020-07-18] MED LIST changes: -GASTROGRAFIN SOLUTION 30ML (Q9963) As Ordered ONE; -ISOVUE-370 76% 100ML VIAL As Ordered ONE
--- NOTE | 2020-07-19 09:58 | REP ---
INDICATION: UNSPECIFIED INJURY OF THORAX. COMPARISON: CT angiogram chest 01/15/2019. TECHNIQUE: Real-time sonographic evaluation of inferior right breast soft tissues and chest wall soft tissues performed in the region of pain following trauma. FINDINGS: Right breast implant demonstrates lobulated margins with no sonographic evidence of rupture. In the peripheral right breast and chest wall soft tissues at approximately the 4 o'clock position of the right breast 2 adjacent cystic areas are seen. One of them demonstrates somewhat hyperechoic nodular wall thickening. This measures approximately 1.8 x 1.4 x 3.2 cm. There is an adjacent anechoic, simple cyst measuring 2.9 x 1.5 x 2.2 cm. Correlating with the prior CT angiogram of the chest, there are 2 adjacent oval subcutaneous fatty nodules in this region on the CT scan. I suspect these areas are inside sales representative of fat necrosis. IMPRESSION: BI-RADS category 3, probably benign. No sonographic evidence of rupture of right breast implant. In the region of 4 o'clock right breast and adjacent chest wall there are 2 adjacent cystic structures as discussed above, which appear to correlate with 2 adjacent fatty nodules on the prior CT angiogram of the chest 01/15/2019. I suspect these represent areas of fat necrosis. Recommend follow-up ultrasound in 6 months. <Electronically signed by Lance Duong > 07/19/20 [id number]
== END ==
LOC: M RAD 08:07
PROVIDERS: ATTEND Pediatrics
DX: S29.9XXD Unspecified injury of thorax, subsequent encounter (principal); Y92.9 Unspecified place or not applicable; Y93.9 Activity, unspecified; Y99.9 Unspecified external cause status

== ENCOUNTER 2021-05-22 12:50 | Outpatient (RCR) | payer OTHER | END 2021-06-07 | LOC: M PT 12:50 | PROVIDERS: ATTEND Pediatrics | DX: R25.2 Cramp and spasm (principal) ==

== ENCOUNTER → 2021-07-21 | Outpatient (CLI) | payer OTHER ==
[~2021-07-21] MED LIST changes: +ALBU2.5V10 NEB; -ALBU83IN NEB
== END ==
LOC: M RAD 15:39
PROVIDERS: ATTEND Pediatrics
DX: R22.2 Localized swelling, mass and lump, trunk (principal); R07.89 Other chest pain

== ENCOUNTER → 2021-08-27 | Outpatient (CLI) | payer OTHER | LOC: M CARPUL 13:04 | PROVIDERS: ATTEND Pediatrics | DX: I31.3 Pericardial effusion (noninflammatory) (principal); I51.89 Other ill-defined heart diseases ==

== ENCOUNTER → 2021-08-31 | Outpatient (CLI) | payer OTHER ==
[2021-08-31 13:56] LABS: BLOOD UREA NITROGEN 24 MG/DL (7-18); CALCIUM LEVEL 8.7 MG/DL (8.8-10.2); CARBON DIOXIDE LEVEL 29 MEQ/L (21-32); CHLORIDE LEVEL 107 MEQ/L (98-107); CREATININE FOR GFR 0.91 MG/DL (0.55-1.30); GLOMERULAR FILTRATION RATE > 60.0 (>45); GLUCOSE, FASTING 272 MG/DL (70-100); POTASSIUM SERUM 4.1 MEQ/L (3.5-5.1); SODIUM LEVEL 141 MEQ/L (136-145)
== END ==
LOC: M LAB 13:09
PROVIDERS: ATTEND Surgery
DX: N64.4 Mastodynia (principal)

== ENCOUNTER → 2021-09-01 | Outpatient (CLI) | payer OTHER | LOC: M WHC 10:41 | PROVIDERS: ATTEND Surgery | DX: N64.4 Mastodynia (principal); R92.8 Other abnormal and inconclusive findings on diagnostic imaging of breast; Z98.82 Breast implant status; Z90.12 Acquired absence of left breast and nipple ==

== ENCOUNTER → 2021-10-08 | Outpatient (CLI) | payer OTHER ==
[2021-10-08 16:44] LABS: BLOOD UREA NITROGEN 18 MG/DL (7-18); CALCIUM LEVEL 8.4 MG/DL (8.8-10.2); CARBON DIOXIDE LEVEL 30 MEQ/L (21-32); CHLORIDE LEVEL 104 MEQ/L (98-107); CREATININE FOR GFR 0.85 MG/DL (0.55-1.30); GLOMERULAR FILTRATION RATE > 60.0 (>45); GLUCOSE, FASTING 209 MG/DL (70-100); SODIUM LEVEL 138 MEQ/L (136-145)
== END ==
LOC: M LAB 14:54
PROVIDERS: ATTEND Surgery
DX: N64.4 Mastodynia (principal)

== ENCOUNTER → 2021-10-24 | Outpatient (CLI) | payer OTHER ==
[~2021-10-24] MED LIST changes: +PROHANCE 279.3MG/ML 15ML VIAL As Ordered ONE; +PROHANCE 279.3MG/ML 5ML VIAL As Ordered ONE
== END ==
LOC: M RAD 14:40
PROVIDERS: ATTEND Surgery
DX: R92.8 Other abnormal and inconclusive findings on diagnostic imaging of breast (principal); N64.4 Mastodynia; Z85.3 Personal history of malignant neoplasm of breast; Z90.12 Acquired absence of left breast and nipple
CPT/HCPCS: 77049; A9576

== ENCOUNTER → 2022-07-21 | Outpatient (CLI) | payer OTHER ==
[~2022-07-21] MED LIST changes: -PROHANCE 279.3MG/ML 15ML VIAL As Ordered ONE; -PROHANCE 279.3MG/ML 5ML VIAL As Ordered ONE
[2022-07-21 17:32] LABS: BASO % 0.4 % (0.0-1.0); EOS # 0.2 10^3/uL (0.0-0.5); EOS % 3.8 % (0.0-3.0); HEMATOCRIT 39.4 % (36.0-47.0); HEMOGLOBIN 13.4 g/dl (12.0-15.5); LYMPH # 1.6 10^3/uL (1.5-5.0); MEAN CORPUSCULAR HEMOGLOBIN 31.7 pg (27.0-33.0); MEAN CORPUSCULAR VOLUME 93.1 fl (80.0-96.0); MONO # 0.5 10^3/uL (0.0-0.8); MONO % 9.9 % (2.0-8.0); NEUTROPHILS # 2.5 10^3/uL (1.5-8.5); NEUTROPHILS % 51.7 % (36.0-66.0); PLATELET COUNT, AUTOMATED 181 10^3/uL (150-450); RED BLOOD COUNT 4.23 10^6/uL (4.00-5.40); WHITE BLOOD COUNT 4.7 10^3/uL (4.0-10.0)
[2022-07-21 18:04] LABS: BLOOD UREA NITROGEN 18 MG/DL (9-23); CALCIUM LEVEL 8.5 MG/DL (8.3-10.6); CARBON DIOXIDE LEVEL 28 MMOL/L (20-31); CHLORIDE LEVEL 110 MMOL/L (98-107); CHOLESTEROL LEVEL 198 MG/DL (<200); CHOLESTEROL RISK RATIO 4.18 (<5); CREATININE FOR GFR 0.62 MG/DL (0.55-1.30); GLOMERULAR FILTRATION RATE > 60.0 (>45); GLUCOSE, FASTING 102 MG/DL (74-106); HDL CHOLESTEROL 47.3 MG/DL (>40); IRON (FE) 60 UG/DL (50-170); LDL CHOLESTEROL 113.5 MG/DL (<100); NON-HDL-C 150.7 MG/DL; PERCENT SATURATION 20.5 % (13.2-45.0); POTASSIUM SERUM 4.3 MMOL/L (3.5-5.1); SODIUM LEVEL 145 MMOL/L (136-145); TOTAL IRON BINDING CAPACITY 293 UG/DL (250-425); TRIGLYCERIDES LEVEL 186 MG/DL (<150)
[2022-07-21 18:05] LABS: FERRITIN 157.2 NG/ML (7.3-270.7)
[2022-07-21 18:06] LABS: FOLATE > 24.0 NG/ML (>5.4); THYROID STIMULATING HORMONE 2.617 uIU/ML (0.55-4.78); VITAMIN B12 LEVEL 1635 PG/ML (211-911)
[2022-07-21 18:15] LABS: HEMOGLOBIN A1c 5.7 % (4.0-6.0)
== END ==
LOC: M LAB 16:07
PROVIDERS: ATTEND Pediatrics
DX: E78.5 Hyperlipidemia, unspecified (principal); I11.9 Hypertensive heart disease without heart failure; Z98.84 Bariatric surgery status

== ENCOUNTER → 2022-10-13 | Outpatient (CLI) | payer OTHER | LOC: M RAD 08:10 | PROVIDERS: ATTEND Pediatrics | DX: R11.10 Vomiting, unspecified (principal); K76.0 Fatty (change of) liver, not elsewhere classified; Z98.84 Bariatric surgery status ==

== ENCOUNTER → 2022-11-19 | Outpatient (CLI) | payer OTHER ==
[2022-11-19 17:56] LABS: PERCENT SATURATION 20.3 % (13.2-45.0)
[2022-11-19 17:58] LABS: FERRITIN 173.8 NG/ML (7.3-270.7)
== END ==
LOC: M LAB 16:55
PROVIDERS: ATTEND Pediatrics
DX: Z98.84 Bariatric surgery status (principal)

== ENCOUNTER → 2023-04-07 | Outpatient (CLI) | payer OTHER | LOC: M WHC 12:49 | PROVIDERS: ATTEND Nurse Practitioner Women's Health | DX: R92.8 Other abnormal and inconclusive findings on diagnostic imaging of breast (principal); N63.14 Unspecified lump in the right breast, lower inner quadrant ==

== ENCOUNTER → 2023-05-24 | Outpatient (REF) | payer OTHER ==
[2023-05-24 19:04] LABS: CHOLESTEROL RISK RATIO 2.9 (<5); HDL CHOLESTEROL 50.2 MG/DL (>40); LDL CHOLESTEROL 73.4 MG/DL (<100); NON-HDL-C 95.8 MG/DL
[2023-05-24 19:05] LABS: THYROID STIMULATING HORMONE 2.289 uIU/ML (0.55-4.78)
[2023-05-24 19:11] LABS: HEMOGLOBIN A1c 5.4 % (4.0-6.0)
== END ==
LOC: M LAB REF 18:01
PROVIDERS: ATTEND Pediatrics
DX: E78.5 Hyperlipidemia, unspecified (principal); E66.9 Obesity, unspecified; Z98.84 Bariatric surgery status

== ENCOUNTER → 2023-08-03 | Outpatient (CLI) | payer OTHER | LOC: M SOG 07:57 | PROVIDERS: ATTEND Physician Assistant | DX: M25.562 Pain in left knee (principal) ==

== ENCOUNTER → 2023-09-01 | Outpatient (REF) | payer OTHER ==
[2023-09-01 17:14] LABS: BASO % 0.7 % (0.0-1.0); EOS # 0.1 10^3/uL (0.0-0.5); HEMATOCRIT 44.1 % (36.0-47.0); HEMOGLOBIN 14.7 g/dl (12.0-15.5); LYMPH # 1.6 10^3/uL (1.5-5.0); LYMPH % 29.3 % (24.0-44.0); MEAN CORPUSCULAR HEMOGLOBIN 31.2 pg (27.0-33.0); MEAN CORPUSCULAR HGB CONC 33.3 g/dl (32.0-36.5); MEAN CORPUSCULAR VOLUME 93.6 fl (80.0-96.0); MONO # 0.5 10^3/uL (0.0-0.8); MONO % 8.7 % (2.0-8.0); NEUTROPHILS # 3.2 10^3/uL (1.5-8.5); NEUTROPHILS % 59.1 % (36.0-66.0); PLATELET COUNT, AUTOMATED 209 10^3/uL (150-450); RED BLOOD COUNT 4.71 10^6/uL (4.00-5.40); WHITE BLOOD COUNT 5.4 10^3/uL (4.0-10.0)
[2023-09-01 17:17] LABS: IRON (FE) 105 UG/DL (50-170)
[2023-09-01 17:18] LABS: TOTAL IRON BINDING CAPACITY 309 UG/DL (250-425)
[2023-09-01 17:19] LABS: FERRITIN 223.5 NG/ML (7.3-270.7); TOTAL 25(OH) VITAMIN D 34.1 NG/ML (20.0-100.0)
[2023-09-01 17:20] LABS: FOLATE > 24.0 NG/ML (>5.4); VITAMIN B12 LEVEL 648 PG/ML (211-911)
== END ==
LOC: M LAB REF 16:27
PROVIDERS: ATTEND Pediatrics
DX: K91.2 Postsurgical malabsorption, not elsewhere classified (principal)

== ENCOUNTER → 2023-11-03 | Outpatient (CLI) | payer OTHER | LOC: M SOG 13:03 | PROVIDERS: ATTEND Physician Assistant | DX: M25.531 Pain in right wrist (principal); M19.031 Primary osteoarthritis, right wrist ==

== ENCOUNTER → 2024-05-23 | Outpatient (CLI) | payer OTHER ==
[~2024-05-23] MED LIST changes: -MULT200T7 PO; +MULT200T9 PO
== END ==
LOC: M WHC 13:14
PROVIDERS: ATTEND Pediatrics
DX: C50.212 Malignant neoplasm of upper-inner quadrant of left female breast (principal)

== ENCOUNTER → 2024-08-14 | Outpatient (CLI) | payer OTHER | LOC: M WHC 13:20 | PROVIDERS: ATTEND Pediatrics | DX: M81.8 Other osteoporosis without current pathological fracture (principal); M85.851 Other specified disorders of bone density and structure, right thigh; M85.852 Other specified disorders of bone density and structure, left thigh ==

== ENCOUNTER → 2025-01-11 | Outpatient (CLI) | payer OTHER ==
[~2025-01-11] MED LIST changes: +EQL50TAB2 PO; -RA B1TAB2 PO
[2025-01-11 14:07] LABS: CALCIUM LEVEL 8.3 MG/DL (8.3-10.6); CARBON DIOXIDE LEVEL 30 MMOL/L (20-31); CHLORIDE LEVEL 106 MMOL/L (98-107); CREATININE FOR GFR 0.65 MG/DL (0.55-1.30); GLOMERULAR FILTRATION RATE > 90.0 (>45); POTASSIUM SERUM 4.5 MMOL/L (3.5-5.1); SODIUM LEVEL 146 MMOL/L (136-145)
== END ==
LOC: M LAB 12:46
PROVIDERS: ATTEND Pediatrics
DX: I10 Essential (primary) hypertension (principal)

== ENCOUNTER 2025-01-26 14:14 | Outpatient (CLI) | payer OTHER ==
[~2025-01-26] VITALS: Ht 152.4 cm; Wt 93.2 kg
[2025-01-26] MEDS: ZOLEDRONIC ACID 5 MG in IV 1 EA IV ONE (14:34)
[2025-01-26 15:40] VITALS: O2SAT 97
== END 2025-01-26 15:40 | disposition home or self-care (01) ==
LOC: M INFU 14:14
PROVIDERS: ATTEND Pediatrics
DX: M81.0 Age-related osteoporosis without current pathological fracture (principal); Z98.84 Bariatric surgery status; K21.9 Gastro-esophageal reflux disease without esophagitis; K90.49 Malabsorption due to intolerance, not elsewhere classified; Z88.0 Allergy status to penicillin; Z88.6 Allergy status to analgesic agent; Z88.8 Allergy status to other drugs, medicaments and biological substances
CPT/HCPCS: 96365; J3489